=== PATIENT | female | born 1990 | race Two or more races ===

== ENCOUNTER 2019-07-19 10:18 | Inpatient (IN) | payer OTHER ==
[~2019-07-19] VITALS: Ht 170.2 cm; Wt 76.2 kg
[2019-08-10] MEDS ORDERED: PRENATAL 19 TA1 EAC1 PO (09:07)
== END 2019-08-12 14:56 | disposition home or self-care (01) | DRG 785 ==
LOC: OB/GYN 08-10 06:08 → LDR 08-10 06:08 → OB/GYN 08-10 14:06
PROVIDERS: ADMIT Specialist
PROC: 10D00Z1 Extraction of Products of Conception, Low, Open Approach (ICD-10-PCS; principal; 2019-08-10)
PROC: 0UL70ZZ Occlusion of Bilateral Fallopian Tubes, Open Approach (ICD-10-PCS; 2019-08-10)
PROC: 4A1HXCZ Monitoring of Products of Conception, Cardiac Rate, External Approach (ICD-10-PCS; 2019-08-10)
DX: O82 Encounter for cesarean delivery without indication (principal); Z3A.39 39 weeks gestation of pregnancy; Z37.0 Single live birth; Z30.2 Encounter for sterilization